=== PATIENT | female | born 1970 | race Caucasian/White ===

== ENCOUNTER 2018-03-20 07:40 | Emergency (ER) | payer OTHER ==
--- NOTE | 2018-03-20 07:47 | ED Physician Documentation ---
General Adult - HISTORIAN Historian: patient - HPI Stated Complaint: left forearm and wrist pain Chief Complaint: Wrist Injury Onset: minutes (30) Timing: still present Severity: moderate Further Comments: yes (She reports she was at work and got her arm/wrist stuck in between two palates and she now has arm pain (wrist and forarm) and she has not tried any OTC meds for pain or ice) Last known Well Code/Unknown Code: Unknown - ROS CONST: no problems - PAST HX Past History: none Other History: none Surgeries/Procedures: BTL Immunizations: UTD Allergies/Adverse Reactions: Allergies Allergy/AdvReac Type Severity Reaction Status Date / Time No Known Allergies Allergy Verified 03/20/18 08:00 Home Medications: Ambulatory Orders Medication Instructions Recorded NK [NK] 03/20/18 - SOCIAL HX Smoking History: non-smoker Alcohol Use: none Drug Use: none - FAMILY HX Family History: No - VITAL SIGNS Vital Signs: Vital Signs Temp Pulse Resp BP Pulse Ox 164/76 07/24/14 14:42 - REVIEWED ASSESSMENTS Nursing Assessment Reviewed: Yes Vitals Reviewed: Yes Progress - Progress Progress: 0830: discussed results and need to keep arm elevated and ice. Follow up with PCP in am if she feels she will need extended time off work. DG ED Results Lab/Radiology - Radiology Radiology Impressions: HISTORY: 47-year-old female with left wrist pain after injury. COMPARISON: None available. TECHNIQUE: Three views of the left wrist were performed. FINDINGS: No fracture, subluxation, or dislocation are identified about the left wrist. No significant degenerative changes. IMPRESSION: Unremarkable radiographs of the left wrist. Electronically signed on Mar 20, 2018 8:21:06 AM CDT by: Sacha Farmer IMPRESSION: Unremarkable radiographs of the left forearm. Electronically signed on Mar 20, 2018 8:20:36 AM CDT by: Sacha Farmer General Adult Physical Exam - PHYSICAL EXAM GENERAL APPEARANCE: no distress EENT: eye inspection normal RESPIRATORY: no resp distress, chest non-tender, breath sounds normal CVS: reg rate & rhythm, heart sounds normal, no murmur ABDOMEN: soft BACK: normal inspection SKIN: warm/dry, normal color EXTREMITIES: other (left wrist and forearm with redness and pain to palpation at the wrist. Pulses + cap refill + and decreased ROM . She is able to mildly squeeze with left hand and she can spread fingers on left hand ) NEURO: oriented X3, CN's nml as tested, motor nml, sensation nml, mood/affect nml, cognition normal Discharge Clincal Impression: Wrist pain, acute Qualifiers: Laterality: left Qualified Code(s): M25.532 - Pain in left wrist Referrals: Christian Nur MD [Primary Care Provider] - 2 Days Additional Instructions: 1. Elevate /Ice 2. Tramodol 50 mg every 8 hours as needed for pain (dose given in ER 0830) 3. Follow up with PCP in Am for added time off work 4. Return to ER for any concerns Condition: Stable Disposition: 01 HOME, SELF-CARE Decision to Admit: NO Date of Decison to Admit: 03/20/18 Decision Time: 08:34
--- NOTE | 2018-03-20 08:22 | Diagnostic Imaging Report ---
[facility] [address] [facility] [address] [id number] Report Submission Date: Mar 20, 2018 8:21:06 AM CDT Patient Study Name: SANGITA GIL Date: Mar 20, 2018 7:59:59 AM CDT Modality Type: DX Gender: F Description: UPPER EXTREMITY : 74 Institution: [facility] Physician: [place] [facility] HISTORY: 47-year-old female with left wrist pain after injury. COMPARISON: None available. TECHNIQUE: Three views of the left wrist were performed. FINDINGS: No fracture, subluxation, or dislocation are identified about the left wrist. No significant degenerative changes. IMPRESSION: Unremarkable radiographs of the left wrist. Electronically signed on Mar 20, 2018 8:21:06 AM CDT by: Sacha WILEY
--- NOTE | 2018-03-20 08:23 | Diagnostic Imaging Report ---
[facility] [place] [address] [facility] [address] [address] Report Submission Date: Mar 20, 2018 8:20:36 AM CDT Patient Study Name: SANGITA GIL Date: Mar 20, 2018 8:04:18 AM CDT Modality Type: DX Gender: F Description: UPPER EXTREMITY : 74 Institution: [facility] Physician: [place] HISTORY: 47-year-old female with left forearm pain after injury. COMPARISON: None available. TECHNIQUE: AP and lateral views of the left forearm were performed. It should be noted that the AP view is hung as if it is a right forearm. FINDINGS: No fracture or other osseous abnormality are identified about the left radius or ulna. The elbow and wrist are grossly normal. IMPRESSION: Unremarkable radiographs of the left forearm. Electronically signed on Mar 20, 2018 8:20:36 AM CDT by: Sacha WILEY
[2018-03-20] MEDS ORDERED: oxyCODONE/ACETAMINOPHEN 5/325 TABLET PO ONE (08:28)
[2018-03-20 08:43] VITALS: BP 130/78
== END 2018-03-20 08:41 | disposition home or self-care (01) ==
LOC: ED 07:40
DX: M25.532 Pain in left wrist (principal); W23.1XXA Caught, crushed, jammed, or pinched between stationary objects, initial encounter; Y92.9 Unspecified place or not applicable; Y93.9 Activity, unspecified; Y99.9 Unspecified external cause status
CPT/HCPCS: 73090; 73110; A9270; 99284